=== PATIENT | female | born 1980 | race Caucasian/White ===

== ENCOUNTER 2021-10-18 04:48 | Inpatient (IN) ==
[2021-10-18] MEDS ORDERED: 0.9 % Sodium Chloride 1,000 ML IV ONE (16:17)
[2021-10-18 21:54] LABS: Influenza A PCR Negative (Negative); Influenza B PCR Negative (Negative); Resp. Syncytial Virus PCR Negative (Negative); SARS-CoV-2 by PCR (In House) Negative (Negative)
[2021-10-19] MEDS ORDERED: haloperidoL 5 MG TABLET PO PRN (13:35)
[2021-10-19] MEDS ORDERED: *HR* LORazepam 2 MG/ML VIAL IM PRN (13:35)
[2021-10-19] MEDS ORDERED: *HR* LORazepam 1 MG TABLET PO PRN (13:35)
[2021-10-19] MEDS ORDERED: Haloperidol Lactate 5 MG/ML VIAL IM PRN (13:35)
[2021-10-19] MEDS ORDERED: Mag Hydrox/Al Hydrox/Simeth 30 ML UDC PO PRN (20:26)
[2021-10-19] MEDS: Ibuprofen 400 MG TABLET PO PRN (20:42)
[2021-10-19] MEDS ORDERED: traZODone 50 MG TABLET PO PRN (21:00)
[2021-10-20] MEDS ORDERED: MOM Conc 10 ML UD.LIQ PO PRN (12:36)
[2021-10-20] MEDS ORDERED: Furosemide 40 MG TABLET PO PRN (12:46)
[2021-10-20] MEDS: Nicotine 14 MG PATCH.TD24 TD SCH (12:57)
[2021-10-20] MEDS: FLUoxetine HCl 10 MG CAPSULE PO SCH (13:00)
[2021-10-20] MEDS: hydrOXYzine pamoate 25 MG CAPSULE PO PRN (16:54)
[2021-10-20] MEDS: Ibuprofen 400 MG TABLET PO PRN (16:54)
[2021-10-20] MEDS: ARIPiprazole 5 MG TABLET PO SCH (20:46)
[2021-10-21] MEDS: Nicotine 14 MG PATCH.TD24 TD SCH (10:13)
[2021-10-21] MEDS: FLUoxetine HCl 10 MG CAPSULE PO SCH (10:14)
[2021-10-21] MEDS: Ibuprofen 400 MG TABLET PO PRN ×2 (10:14→18:00)
[2021-10-21] MEDS: hydrOXYzine pamoate 25 MG CAPSULE PO PRN (18:00)
[2021-10-21] MEDS: ARIPiprazole 5 MG TABLET PO SCH (21:06)
[2021-10-22 08:27] VITALS: BP 105/67; PULSE 83; TEMP 98.3; O2SAT 97
[2021-10-22] MEDS: FLUoxetine HCl 10 MG CAPSULE PO SCH (09:02)
[2021-10-22] MEDS: Nicotine 14 MG PATCH.TD24 TD SCH (09:02)
== END 2021-10-22 14:34 | disposition home or self-care (01) | DRG 751 ==
LOC: EMEROOARM 04:48 → 1ANU 04:48
PROVIDERS: ADMIT Psychiatry & Neurology Psychiatry; ATTEND Psychiatry & Neurology Psychiatry